=== PATIENT | female | born 1995 | race Caucasian/White ===

== ENCOUNTER 2022-12-08 04:07 | Day surgery (SDC) | payer OTHER, SELFPAY ==
[2022-12-08] VITALS (16 sets, daily range): BP systolic 111–150; BP diastolic 60–94; PULSE 70–92; RESP 12–16; TEMP 36.3–36.6; O2SAT 92–99; BMI 38.0; BMI 37.5
[2022-12-08 04:32] LABS: Appearance Urine Clear (Clear); Bilirubin Urine Negative (Negative); Blood Urine Negative (Negative); Color Urine Yellow (Yellow); Glucose Urine Negative (Negative); Ketones Urine Negative (Negative); Leukocyte Esterase Urine Trace (Negative); Nitrite Urine Negative (Negative); Protein Urine 1+ (Negative); Urobilinogen Urine 0.2 (0.2-1.0)
--- NOTE | 2022-12-08 04:38 | ED_ITS ---
HPI - General Adult General Chief complaint: Abdominal Pain Stated complaint: pain in kidney,chest and back Time Seen by Provider: 12/08/22 04:27 Source: patient Mode of arrival: ambulatory Limitations: no limitations History of Present Illness HPI narrative: 27-year-old female, anxious presents to the emergency department with a 2 day history of suprapubic area pain that radiates to the bilateral lower back area. No hematuria. Positive dysuria. No fevers no shaking chills, no weakness. Reports that she had vomiting x1 this morning. Normal stools. No blood. No gynecological symptoms, vaginal discharge or changes in partners. She is not on any form of contraception, last period was 3 weeks ago. She took some Tylenol last night with some temporary improvement in her symptoms, has not tried ibuprofen. Symptoms feel similar to when she had a bladder infection in September. She reports that she does not feel like her symptoms completely resolved after that bladder infection better definitely worse in the last 2 days that they had been in the last few months. She reports that she was feeling anxious about her symptoms and had an episode of chest pain about 2 hours ago that lasted a few minutes. It is currently resolved. She does not have any history of cardiac disease. Past medical history benign per her report. No major long-term health problems. Denies any long-term prescription medications, denies allergies. Socially she is a nonsmoker with no pertinent travel. ROS is notable for the generalized, chest and urinary symptoms as described above, otherwise denies times 12 systems. Related Data Home Medications Medication Instructions Recorded Confirmed No Known Home Medications 12/08/22 12/08/22 Allergies Allergy/AdvReac Type Severity Reaction Status Date / Time No Known Drug Allergies Allergy Verified 12/08/22 04:12 [facility] Social History Smoking Status: Never smoker Do you use any of these nicotine containing products: None Second hand tobacco smoke exposure: No How often do you have a drink containing alcohol: never How often do you have six or more drinks on one occasion: Never AUDIT-C Alcohol total score: 0 Non-prescribed substance use: denies use service: No Exam Const: Vital Signs, click to edit/add: Vital Signs - 24 hr 12/08/22 04:12 12/08/22 05:18 Temperature 97.6 F Pulse Rate [Pulse Oximeter] 89 90 Respiratory Rate 16 16 Blood Pressure [Le ft Upper Arm] 150/82 H 130/70 Pulse Oximetry 93 98 Oxygen Delivery Me thod Room Air Room Air Documenting provider has reviewed patient's vital signs: yes Common normals: alert Other: Moderate insight. Mildly anxious. Appears well-nourished, well-hydrated and nontoxic. HENMT: Common normals: normocephalic Head and scalp: normocephalic Face and sinus: normal facial exam Mouth: oral and palatal mucosa normal Throat: posterior oropharynx normal Eye: Common normals: conjunctivae normal General eye: normal appearance of both eyes Conjunctiva: conjunctiva(e) normal Neck & C-Spine: Common normals: full ROM and no lymphadenopathy Resp: Common normals: normal respiratory effort, no use of accessory muscles and clear to auscultation bilaterally Effort & inspection: able to speak in complete sentences Auscultation: clear to auscultation bilaterally Cardio: Common normals: regular rate, regular rhythm, S1 normal heart sound, S2 normal heart sound, no murmurs and peripheral pulses 2+ throughout Rate: regular rate Rhythm: regular rhythm Heart sounds: S1 normal and S2 normal Peripheral pulses: pulses 2+ throughout GI: Other: Abdomen is obese but soft. Bowel sounds are normoactive in all 4 quadrants. Nondistended. Mild suprapubic tenderness and right lower abdominal tenderness with no rebound tenderness, mass, guarding or hernias. : Common normals: no CVA tenderness Bladder/kidney exam: no CVA tenderness Back & Pelvis: Common normals: no CVA tenderness Other: Mild tenderness over the lower flank but not in the CVA. Extremity: Common normals: normal to inspection, normal capillary refill and no pedal edema Neuro: Sensorium/orientation: alert Speech: speech normal Gait (neuro): normal gait Motor exam: no tremor noted and no movement abnormalities noted Psych: Appearance: grossly normal Insight: fair Judgement: fair Other: Mildly anxious Skin: Common normals: no rashes or lesions noted General skin exam: no rashes or lesions noted Course Vital Signs Vital signs: Initial Vital Signs Temperature 97.6 F 12/08/22 04:12 Temperature Source Temporal Artery Scan 12/08/22 04:12 Pulse Rate 89 12/08/22 04:12 Pulse Rhythm Regular 12/08/22 04:12 Respiratory Rate 16 12/08/22 04:12 Blood Pressure 150/82 H 12/08/22 04:12 Blood Pressure Mean 104 12/08/22 04:12 Pulse Oximetry 93 12/08/22 04:12 Oxygen Delivery Method Room Air 12/08/22 04:12 Vital Signs Temperature 97.6 F 12/08/22 04:12 Pulse Rate 89 12/08/22 04:12 Respiratory Rate 16 12/08/22 04:12 Blood Pressure 150/82 H 12/08/22 04:12 Pulse Oximetry 93 12/08/22 04:12 Oxygen Delivery Method Room Air 12/08/22 04:12 Temperature 97.6 F 12/08/22 04:12 Pulse Rate 90 12/08/22 05:18 Respiratory Rate 16 12/08/22 05:18 Blood Pressure 130/70 12/08/22 05:18 Pulse Oximetry 98 12/08/22 05:18 Oxygen Delivery Method Room Air 12/08/22 05:18 Medical Decision Making MDM Narrative Medical decision making narrative: No severe abdominal tenderness, symptoms of sepsis. Exam is overall reassuring to problems limited within the suprapubic region. I have recommended urinalysis prior to any significant further other workup as well as an EKG. She was agreeable to this. Awaiting findings. Update: UA was nonsuspicious, elected to perform basic labs and CT scan of the abdomen and pelvis. Findings demonstrate leukocytosis, normal CRP. CT with early appendicitis. Patient feeling better on Toradol and Zofran. Spoke with Dr. Kramer from surgery, she is agreeable to inpatient placement and starting antibiotics. She will consult on patient this morning with a plan for surgery this afternoon. I will order Zosyn, make patient NPO and start some maintenance fluids. The hospitalist was called at 5:57 a.m.. Lab Data Lab results reviewed: Yes I reviewed the patient's lab results Labs: Lab Results 12/08/22 12/08/22 Range/Units 04:27 04:47 WBC 16.60 H (4.50-11.00) K/uL RBC 5.65 H (4.00-5.20) m/uL Hgb 14.2 (12.0-16.0) gm/dL Hct 43.5 (33.0-51.0) % MCV 77 L (80-100) fL MCH 25 L (26-34) pg MCHC 33 (32-36) gm/dL RDW Coeff of Juan 12.5 (11.5-15.5) % Plt Count 330 (140-440) K/uL Neut % (Auto) 75.4 H (42.0-72.0) % Lymph % (Auto) 14.5 L (20-44) % Person % (Auto) 8.7 (0.0-11.0) % Eos % (Auto) 1.0 (0.0-7.0) % Baso % (Auto) 0.1 (0.0-3.0) % Neut # (Auto) 12.50 H (1.7-7.0) K/uL Lymph # (Auto) 2.40 (0.90-2.90) K/uL Person # (Auto) 1.40 H (0.00-0.90) K/UL Eos # (Auto) 0.20 (0.00-0.50) K/uL Baso # (Auto) 0.00 (0.00-0.30) K/uL Sodium 139 (135-149) mmol/L Potassium 3.8 (3.6-5.1) mmol/L Chloride 105 (96-114) mmol/L Carbon Dioxide 25 (20-32) mmol/L BUN 12 (5-24) mg/dL Creatinine 0.8 (0.5-1.5) mg/dL Estimated Creat Clear 92.02 Estimated GFR 104 ml/min Glucose 103 (60-115) mg/dL Calcium 9.5 (8.4-10.6) mg/dL Total Bilirubin 0.6 (0.1-1.5) mg/dL AST 30 (12-35) U/L ALT 39 H (4-35) U/L Alkaline Phosphatase 86 (40-150) U/L C-Reactive Protein 1.0 (0.5-1.0) mg/dL Total Protein 7.7 (6.0-8.3) g/dL Albumin 4.4 (3.3-5.0) g/dL Lipase 44 (23-300) U/L HCG, Qual Negative (Negative) Urine Color Yellow (Yellow) Urine Appearance Clear (Clear) Urine pH 6.0 (5.0-8.5) Ur Specific Burton 1.010 (1.000-1.030) Urine Protein 1+ A (Negative) Urine Glucose (UA) Negative (Negative) Urine Ketones Negative (Negative) Urine Blood Negative (Negative) Urine Nitrite Negative (Negative) Urine Bilirubin Negative (Negative) Urine Urobilinogen 0.2 (0.2-1.0) Ur Leukocyte Esterase Trace A (Negative) Urine RBC 0-2 (0-2) Urine WBC 2-5 (0-5) Ur Squamous Epith Cells Few (None-Few) Urine Bacteria Few A (None) POC Troponin I 0.01 (0.01-0.04) ng/ml ECG Data Attestation: I personally reviewed and interpreted this ECG as follows: Prior ECG tracings: not available for review Interpretation: Normal sinus rhythm rate 96. No significant ST or T-wave abnormalities. Q- waves in lead to are a little enlarged but nonspecific. Normal axis Discharge Plan Discharge Clinical Impression: Acute appendicitis Patient Disposition: Admitted As Inpatient Condition: Improved
[2022-12-08 04:39] LABS: Bacteria Urine Few; RBC Urine 0-2 (0-2); Squamous Epithelial Cell Urine Few (None-Few)
[2022-12-08 04:41] LABS: HCG Qualitative* Negative (Negative)
--- NOTE | 2022-12-08 04:44 | CRLHL7_ITS ---
For Patients: As a result of the 21st Century Cures Act, medical imaging exams and procedure reports are released immediately into your electronic medical record. You may view this report before your referring provider. If you have questions, please contact your health care provider. INDICATION: Bilateral abdominal pain. COMPARISON: None TECHNIQUE: CT examination of the abdomen and pelvis was performed following the uneventful intravenous administration of 100 cc of Isovue 370. Thin section axial images were obtained from the lung bases through the pubic symphysis. Oral contrast was not administered. Please note that all CT scans at this facility use dose modulation, iterative reconstruction, and/or weight-based dosing when appropriate to reduce radiation dose to as low as reasonably achievable. FINDINGS: LUNG BASES: The lung bases as visualized appear normal.The heart size is normal at the lung bases. LIVER/BILIARY SYSTEM:The liver is normal in size and configuration. There is no focal mass and there is no intra- or extra hepatic biliary ductal dilatation.Hepatic steatosis. Normal appearing gallbladder. ADRENALS: Normal KIDNEYS, URETERS and BLADDER:The kidneys are normal in size. There is subtle decreased enhancement the posteromedial upper pole of the left kidney. This may be a transitory perfusion anomaly but pyelonephritis can create this appearance. Correlate with urinalysis. No obstructive uropathy. The bladder appears normal. SPLEEN:Normal appearance. PANCREAS: Appears normal. RETROPERITONEUM and MESENTERY: Mildly prominent lymph nodes in the right lower quadrant adjacent to the cecum GASTROINTESTINAL SYSTEM: The appendix is prominent measuring up to 9 millimeters. Greater than 6 millimeters is generally considered abnormal. The appendix appears slightly hyperemic but there are no surrounding inflammatory changes. The constellation of findings may represent very early acute appendicitis in the appropriate clinical setting. PELVIS: No mass, adenopathy or free fluid. OSSEOUS STRUCTURES and ABDOMINAL WALL: There is an age-appropriate appearance of the osseous structures.No significant abdominal wall defect. OTHER: No free fluid or free air. IMPRESSION: 1. Prominent appendix without surrounding inflammatory change but mild hyperemia. The findings may represent very early acute appendicitis in the appropriate clinical setting. Prominent lymph nodes in the right lower quadrant 2. Decreased enhancement of the posteromedial aspect of the left upper pole of the kidney. This could be due to a transitory perfusion anomaly though pyelonephritis can create this appearance. Correlate with urinalysis. Please note that all CT scans at this facility use dose modulation, iterative reconstruction, and/or weight-based dosing when appropriate to reduce radiation dose to as low as reasonably achievable. Dictated by Sukumar Hamilton MD @ 12/08/2022 5:35:11 AM (Electronically Signed)
[2022-12-08] MEDS: 0.9 % SODIUM CHLORIDE 1000 ml 1,000 ML IV (04:58)
[2022-12-08] MEDS: ONDANSETRON 2 MG/ML inj 4 MG IVP ×2 (04:58→14:04)
[2022-12-08] MEDS: KETOROLAC 15 MG/ML inj IVP (04:59)
[2022-12-08 05:07] LABS: Basophils Percent Auto 0.1 % (0.0-3.0); Hematocrit 43.5 % (33.0-51.0); Hemoglobin* 14.2 gm/dL (12.0-16.0); Immature Granulocytes Pct Auto 0.3 %; Lymphocytes Percent Auto 14.5 % (20-44); Mean Corpuscular HGB Conc 33 gm/dL (32-36); Mean Corpuscular Hemoglobin 25 pg (26-34); Mean Corpuscular Volume 77 fL (80-100); Monocytes Percent Auto 8.7 % (0.0-11.0); Neutrophils Percent Auto 75.4 % (42.0-72.0); Platelet Count* 330 K/uL (140-440); RDW Coefficient of Variation % 12.5 % (11.5-15.5); Red Blood Count 5.65 m/uL (4.00-5.20)
[2022-12-08 05:09] LABS: Slide Review Reflex No
[2022-12-08 05:14] LABS: Troponin, Point-of-Care* 0.01 ng/ml (0.01-0.04)
[2022-12-08 05:19] LABS: Chloride* 105 mmol/L (96-114)
[2022-12-08 05:20] LABS: Albumin* 4.4 g/dL (3.3-5.0); Potassium* 3.8 mmol/L (3.6-5.1); Sodium* 139 mmol/L (135-149)
[2022-12-08 05:22] LABS: Creatinine* 0.8 mg/dL (0.5-1.5); Est. Creatinine Clearance* 92.02; Estimated Glomerular Filt Rate 104 ml/min
[2022-12-08 05:23] LABS: Alanine Aminotransferase* 39 U/L (4-35); Alkaline Phosphatase* 86 U/L (40-150); Aspartate Amino Transferase* 30 U/L (12-35); Bilirubin Total* 0.6 mg/dL (0.1-1.5); Blood Urea Nitrogen* 12 mg/dL (5-24); Calcium* 9.5 mg/dL (8.4-10.6); Carbon Dioxide* 25 mmol/L (20-32); Glucose* 103 mg/dL (60-115); Lipase* 44 U/L (23-300); Total Protein* 7.7 g/dL (6.0-8.3)
[2022-12-08] MEDS: PIPERACILLIN/TAZOBACTAM 3.375 GM in 0.9 % SODIUM CHLORIDE Mini-bag 100 ML IVPB ×2 (06:09→11:55)
--- NOTE | 2022-12-08 06:25 | ED.NURSE ---
Patient updated with plan of care. She is agreeable. Last PO intake was 1700 last night per patient. Boyfriend remains at bedside.
[2022-12-08] MEDS: LACTATED RINGERS 1000 ML 1,000 ML 150 ML IV (06:42)
[2022-12-08 07:01] LABS: SARS PCR* Negative SARS-CoV-2 (Negative)
--- NOTE | 2022-12-08 07:46 | ED.NURSE ---
given report to Kerline REA who will resume care of this patient and plan to admit to room 258 via cart on M/S.
--- NOTE | 2022-12-08 08:49 | PM.GSHP ---
History of Present Illness History of Present Illness Date Seen: 12/08/22 Chief complaint: pain in kidney/chest and back Narrative: Chiquis Barakat is a 27 year old female who presented to the emergency department with a one-day history of lower pelvic pain. She states that the pain came out of the blue and has been persistent. Nothing seems to make the pain better and movement makes the pain worse. She does report pain similar to this back in September, but it was more or on her right side and did go away after a period of time. She does report some associated nausea and emesis, last emesis episode was 4:00 a.m.. Denies any diarrhea or constipation. Questions whether she has some pain with urination, although it is not consistent. She has never had abdominal surgery before. Review of Systems Status of ROS: Reports: 10 or more systems reviewed and unremarkable except as noted in History and below [facility] Social History Smoking Status: Never smoker Do you use any of these nicotine containing products: None Second hand tobacco smoke exposure: No How often do you have a drink containing alcohol: never How often do you have six or more drinks on one occasion: Never AUDIT-C Alcohol total score: 0 Non-prescribed substance use: denies use service: No Meds Home Medications and Allergies Home Medications Medication Instructions Recorded Confirmed Type No Known Home Medications 12/08/22 12/08/22 History Allergies Allergy/AdvReac Type Severity Reaction Status Date / Time No Known Drug Allergies Allergy Verified 12/08/22 04:12 Exam Narrative: Exam Narrative: General: Alert and oriented, no acute distress Respiratory: Equal breath rise bilaterally, maintained on room air CV: Regular rhythm rate, well perfused Abdomen: Soft, tender to deep palpation above the pubic bone but no guarding or rebound. No right lower quadrant tenderness with palpation. Const: Vital Signs, click to edit/add: Vital Signs - 24 hr 12/08/22 04:12 12/08/22 05:18 12/08/22 06:24 Temperature 97.6 F Pulse Rate [Pulse Oximeter] 89 90 84 Respiratory Rate 16 16 16 Blood Pressure [Le ft Upper Arm] 150/82 H 130/70 131/85 Blood Pressure [Ri ght Arm] Pulse Oximetry 93 98 98 Oxygen Delivery Me thod Room Air Room Air Room Air 03/28/23 08:16 Temperature 97.7 F Pulse Rate [Pulse Oximeter] 78 Respiratory Rate 16 Blood Pressure [Le ft Upper Arm] Blood Pressure [Ri ght Arm] 130/76 Pulse Oximetry 98 Oxygen Delivery Me thod Room Air Results Results Labs: WBC: [address] scan report/results: report reviewed and image reviewed Assessment and Plan Assessment and plan (1) Acute appendicitis: Status: Acute Plan The patient presented with a history, exam and imaging findings suspicious for early acute appendicitis. I discussed the treatment options with the patient including non-surgical and surgical options. I recommended laparoscopic appendectomy. The risks of surgery were reviewed with the patient including the risks of bleeding, post-operative wound or intra-abdominal infection, injury to abdominal structures and possible conversion to an open operation. We also discussed anesthetic complications including OR, stroke, respiratory failure and blood clots. We also reviewed the possibility that the appendix is normal. In this situation we still remove the appendix. The patient voiced an understanding of our conversation, had the opportunity to ask questions, agreed to accept the risks of surgery and asked that we proceed with surgery. -NPO, IV fluid -Zosyn preoperative antibiotic -OR for laparoscopic appendectomy
[2022-12-08] MEDS: BUPIVACAINE 0.5% 30 ML 10 ML INJECTION (11:58)
--- NOTE | 2022-12-08 12:00 | W.ANESCHARGE ---
Anesthesia Charges Start Date/Time Anesthesia Start Date: 12/08/22 Anesthesia Start Time: 11:48 Stop Date/Time Anesthesia Stop Date: 12/08/22 Anesthesia Stop Time: 12:48
--- NOTE | 2022-12-08 12:33 | P.GSOP_ITS ---
Operative Note Date of procedure: 12/08/22 Pre-op diagnosis: Acute appendicitis Post-op diagnosis: Acute appendicitis, non perforated Type of Procedure: Laparoscopic appendectomy Indications: Patient is a 27-year-old female who presented to the emergency department with workup consistent for early, acute appendicitis. Risks and benefits of operative intervention were discussed at length with the patient. Risks included but was not limited to: Bleeding, infection, risk of damage to surrounding structures, possible need for additional procedures, possible need to convert to an open operation and postoperative complications such as pneumonia, pulmonary emboli or MO. All questions and concerns were addressed with the patient agreeing to proceed. Procedure Description: After discussing the risks and benefits of the procedure, the patient signed informed consent.? The operative site was marked and the patient was brought to the operating room and placed on the operating table in supine position.? Care was taken to pad the patient's pressure points.?? The patient was then intubated by anesthesia.?? The operative site was then prepped and draped in the usual sterile fashion.? A time-out was then performed. Entrance to the abdomen was obtained via a 5 mm optical trocar in the left upper quadrant. The abdomen was insufflated and briefly surveyed for any signs of injury. There were none. A 12 mm port was placed lateral to the umbilicus as well as a 5 mm port in the left lower quadrant under direct vision. The patient was then placed in Trendelenburg position with the right side up. The small bowel was gently moved out of the way and the appendix was in view. A small amount of dissection was necessary to free the appendix from the surrounding pelvic attachments. This was grasped and pulled into view. A mesenteric window was created between the base of the appendix and the mesoappendix. A 45 mm Endo-JAMES vascular load stapler was then used to transect the appendix at its base, which did not appear inflamed. A 45 mm vascular load stapler was then used to take the mesoappendix. The staple lines were inspected for bleeding. There was none. The appendix was then removed from the abdomen using an Endo- Catch bag. The specimen was sent to pathology. The 12 mm port site fascia was closed with 0 Vicryl via the Amish-Dany. The skin was then closed with absorbable subcuticular suture. Sterile dressings were then applied. Instrument sponge and needle counts were correct at the end of the case. The patient was then woken and transported to the PACU in stable condition. ? Findings: Dilated and firm appendix. No evidence of perforation. Findings consistent with early acute appendicitis. Anesthesia: GETA Surgeon: Leslie Kramer MD Estimated blood loss (mL): 2 Specimen: Appendix Condition: stable Disposition: same day
--- NOTE | 2022-12-08 12:49 | W.ANESCHARGE ---
Anesthesia Charges Start Date/Time Anesthesia Start Date: 12/08/22 Anesthesia Start Time: 11:48 Stop Date/Time Anesthesia Stop Date: 12/08/22 Anesthesia Stop Time: 12:48
[2022-12-08] MEDS: LACTATED RINGERS 1000 ML 1,000 ML 100 ML IV (13:15)
[2022-12-08] MEDS: OXYCODONE 5 MG TABLET PO (13:27)
--- NOTE | 2022-12-08 13:58 | PC.NURSE ---
Pt is alert and oriented. NPO prior to surgery. Rated pain 3/10 and stated that was tolerable. Off to surgery around 1100.
== END 2022-12-08 15:15 | disposition home or self-care (01) ==
LOC: ED 07:12 → SS 10:23 → MEDSURG 12:33
PROVIDERS: Emergency Provider Family Medicine; Visit Provider Surgery
PROC: 0DTJ4ZZ Resection of Appendix, Percutaneous Endoscopic Approach (ICD-10-PCS; CPT 44970; principal; 2022-12-08 13:00)
DX: K35.80 Unspecified acute appendicitis (principal)
CPT/HCPCS: 44970; 00840; 36415; 74177; 80053; 81001; 83690; 84484; 84703; 85025; 86140; 87086; 87635; 88304; 93005; 99284; 99285; A9270; J0330; J1100; J1170; J1885; J2250; J2405; J2543; J2704; J3010; J3490; J7030; J7120; Q9967

== ENCOUNTER 2023-03-12 01:10 | Emergency (ER) | payer MEDICAID, SELFPAY ==
[2023-03-12 01:16] VITALS: BP 114/78; PULSE 91; RESP 18; TEMP 35.9; O2SAT 99
--- NOTE | 2023-03-12 01:39 | ED_ITS ---
HPI - General Adult General Chief complaint: Back Injury/Pain Stated complaint: Right side back pain Time Seen by Provider: 03/12/23 01:25 Source: patient and family Mode of arrival: ambulatory History of Present Illness HPI narrative: 27-year-old female presents to the emergency department with right-sided back pain. She is quite vague in her descriptions and is difficult to pin down a diagnosis based on her description. There is no trauma or injury. No hematuria. No prior history of kidney stones. She has also had nausea and vomiting for the past 3 days since she underwent wisdom tooth extraction. She tried taking some oxycodone for her pain which did not improve her symptoms. She was given the oxycodone from the wisdom tooth extraction. There is no radiculopathy, no numbness or tingling. Her last menstrual period was about 3 and half weeks ago. Denies any gynecological symptoms. Reports that she has been throwing up any attempts at pain medication. She is not able to describe it the pain is constant or intermittent, colicky or crampy. She denies any association with bowel movements or food. She points to the right flank area but on further questioning she is also pointing to the right upper quadrant, rig ht lower quadrant, she states that her pain feels like when she had appendicitis. She underwent an uncomplicated appendectomy 3 months ago. There was certainly no loss of bowel or bladder control, no weakness. Past medical history she states is benign, denies any long-term health problems. Denies any long-term medications or allergies. ROS is notable for the right back/flank area pain and vomiting as above, otherwise denies times 12 systems. Related Data Previous Rx's Medication Instructions Recorded oxycodone 5 mg tablet 5 mg PO Q6H PRN pain #15 tabs 12/08/22 sennosides 8.6 mg capsule (senna) 8.6 mg PO DAILY PRN constipation 12/08/22 #90 caps Allergies Allergy/AdvReac Type Severity Reaction Status Date / Time Latex, Natural Rubber Allergy Verified 12/08/22 09:12 [facility] Medical History History of urinary tract infection ?Z87.440 - Personal history of urinary (tract) infections (ICD-10) History of tobacco use ?Z87.891 - Personal history of nicotine dependence (ICD-10) History of self injurious behavior Surgical History History of repair of anterior cruciate ligament ?Z98.890 - Other specified postprocedural states (ICD-10) H/O anterior cruciate ligament surgery ?Z98.890 - Other specified postprocedural states (ICD-10) Social History Highest level of school completed/degree received: high school graduate Smoking Status: Never smoker Do you use any of these nicotine containing products: None Second hand tobacco smoke exposure: No How often do you have a drink containing alcohol: monthly or less How often do you have six or more drinks on one occasion: Less than monthly AUDIT-C Alcohol total score: 2 Non-prescribed substance use: denies use Caffeine: Yes (2-3 cups a day) service: No Exam Const: Vital Signs, click to edit/add: Vital Signs - 24 hr 03/12/23 01:16 Temperature 96.6 F L Pulse Rate [Left P ulse Oximeter] 91 Respiratory Rate 18 Blood Pressure [Ri ght Upper Arm] 114/78 Pulse Oximetry 99 Oxygen Delivery Me thod Room Air Documenting provider has reviewed patient's vital signs: yes Common normals: no apparent distress General appearance: cooperative Other: Cooperative with exam, not a very descriptive historian. HENMT: Common normals: normocephalic Head and scalp: normocephalic Face and sinus: normal facial exam Mouth: oral and palatal mucosa normal Throat: posterior oropharynx normal Eye: Common normals: conjunctivae normal General eye: normal appearance of both eyes Conjunctiva: conjunctiva(e) normal Neck & C-Spine: Common normals: full ROM and no lymphadenopathy Resp: Common normals: normal respiratory effort, no use of accessory muscles and clear to auscultation bilaterally Effort & inspection: able to speak in complete sentences Auscultation: clear to auscultation bilaterally Cardio: Common normals: regular rate, regular rhythm, S1 normal heart sound, S2 normal heart sound and no murmurs Rate: regular rate Rhythm: regular rhythm Heart sounds: S1 normal and S2 normal GI: Common normals: Normal to inspection, nondistended, normoactive bowel sounds present Other: Obese but soft. She reports pain everywhere I palpate but it appears mild and is not reproducible. There was certainly no masses, rebound tenderness or guarding. Back & Pelvis: Other: Mild tenderness at the L2 area on palpation also the right paraspinal muscles. Also somewhat the right CVA area but again the exam was really not very reproducible. Straight leg lift is certainly negative bilaterally. Strength in both legs is normal. Extremity: Common normals: normal to inspection, full ROM and no pedal edema Neuro: Speech: speech normal Gait (neuro): normal gait Motor exam: strength 5/5 throughout and no movement abnormalities noted Psych: Appearance: grossly normal Insight: fair Judgement: fair Other: A bit distant but cooperative. Skin: Common normals: no rashes or lesions noted General skin exam: no rashes or lesions noted Course Course Hospital Course: Wide differential diagnosis including pancreatitis, gallstones, cholecystitis, pancreatitis, musculoskeletal etiology, kidney stone, among others. Recommended urinalysis to look for blood, is not on menstrual cycle. Highest suspicion is for kidney stone based on the vomiting and back pain. Will start an IV, bolus a L of normal saline because of the recent vomiting, Zofran for nausea and Toradol. Basic labs to investigate for other sources. Anticipate CT scan if urinalysis shows any blood. Vital Signs Vital signs: Initial Vital Signs Temperature 96.6 F L 03/12/23 01:16 Temperature Source Temporal Artery Scan 03/12/23 01:16 Pulse Rate 91 03/12/23 01:16 Pulse Rhythm Regular 03/12/23 01:16 Respiratory Rate 18 03/12/23 01:16 Blood Pressure 114/78 03/12/23 01:16 Blood Pressure Mean 90 03/12/23 01:16 Blood Pressure Position Sitting 03/12/23 01:16 Pulse Oximetry 99 03/12/23 01:16 Oxygen Delivery Method Room Air 03/12/23 01:16 Vital Signs Temperature 96.6 F L 03/12/23 01:16 Pulse Rate 91 03/12/23 01:16 Respiratory Rate 18 03/12/23 01:16 Blood Pressure 114/78 03/12/23 01:16 Pulse Oximetry 99 03/12/23 01:16 Oxygen Delivery Method Room Air 03/12/23 01:16 Temperature 96.6 F L 03/12/23 01:16 Pulse Rate 91 03/12/23 01:16 Respiratory Rate 18 03/12/23 01:16 Blood Pressure 114/78 03/12/23 01:16 Pulse Oximetry 99 03/12/23 01:16 Oxygen Delivery Method Room Air 03/12/23 01:16 Medical Decision Making MDM Narrative Medical decision making narrative: Wide differential diagnosis due to unclear story. Patient reports marked improvement with the Toradol, Zofran and IV fluids. Findings from labs and CT scan reviewed with her. She denies regular use of marijuana that could be contributing to the vomiting. I do still have some clinical suspicion that this could be the case as well. Nonetheless, no severe pathology is appreciated. She will be given Zofran, counseled on Tylenol and ibuprofen. Single dose of MiraLax to help with bowels, counseled on further doses. Alarm symptoms reviewed that would warrant repeat ED presentation. She verbalizes understanding and agreement Lab Data Lab results reviewed: Yes I reviewed the patient's lab results Lab results narrative: Mild leukocytosis but overall reassuring. Labs: Lab Results 03/12/23 03/12/23 Range/Units 01:38 01:44 WBC 13.16 H (4.50-11.00) K/uL RBC 5.59 H (4.00-5.20) m/uL Hgb 13.9 (12.0-16.0) gm/dL Hct 44.0 (33.0-51.0) % MCV 79 L (80-100) fL MCH 25 L (26-34) pg MCHC 32 (32-36) gm/dL RDW Coeff of Juan 14.0 (11.5-15.5) % Plt Count 349 (140-440) K/uL Neut % (Auto) 59.9 (42.0-72.0) % Lymph % (Auto) 27.1 (20-44) % [place] % (Auto) 10.3 (0.0-11.0) % Eos % (Auto) 2.0 (0.0-7.0) % Baso % (Auto) 0.5 (0.0-3.0) % Neut # (Auto) 7.90 H (1.7-7.0) K/uL Lymph # (Auto) 3.60 H (0.90-2.90) K/uL [place] # (Auto) 1.40 H (0.00-0.90) K/UL Eos # (Auto) 0.30 (0.00-0.50) K/uL Baso # (Auto) 0.10 (0.00-0.30) K/uL Sodium 141 (135-149) mmol/L Potassium 4.0 (3.6-5.1) mmol/L Chloride 102 (96-114) mmol/L Carbon Dioxide 32 (20-32) mmol/L BUN 9 (5-24) mg/dL Creatinine 1.0 (0.5-1.5) mg/dL Estimated GFR 80 ml/min Glucose 92 (60-115) mg/dL Calcium 9.2 (8.4-10.6) mg/dL Total Bilirubin 0.7 (0.1-1.5) mg/dL AST 20 (12-35) U/L ALT 26 (4-35) U/L Alkaline Phosphatase 75 (40-150) U/L C-Reactive Protein 1.6 H (0.5-1.0) mg/dL Total Protein 8.2 (6.0-8.3) g/dL Albumin 4.5 (3.3-5.0) g/dL Lipase 30 (23-300) U/L Urine Color Yellow (Yellow) Urine Appearance Clear (Clear) Urine pH 6.0 (5.0-8.5) Ur Specific [place] 1.015 (1.000-1.030) Urine Protein Negative (Negative) Urine Glucose (UA) Negative (Negative) Urine Ketones Negative (Negative) Urine Blood Negative (Negative) Urine Nitrite Negative (Negative) Urine Bilirubin Negative (Negative) Urine Urobilinogen 0.2 (0.2-1.0) Ur Leukocyte Esterase Trace A (Negative) Urine RBC 0-2 (0-2) Urine WBC 0-2 (0-5) Ur Squamous Epith Cells Few (None-Few) Urine Bacteria None (None) Urine HCG, Qual Negative (Negative) Imaging Data CT scan - abdomen: Attestation: I have reviewed the pertinent imaging results. My impression: Mild constipation, otherwise normal. Radiologist's impression: IMPRESSION: No acute intra-abdominal process identified. Punctate stone in the lower pole of the right kidney. Status post appendectomy. Discharge Plan Discharge Clinical Impression: Low back strain, Post-operative nausea and vomiting Patient Disposition: Home w/ Parent or Adult Condition: Improved Instructions: Acute Nausea and Vomiting (ED) Additional Instructions: I think that there may be 2 separate processes going on here today. There are no signs of a kidney stone, infection or pancreatitis or problems with the gallb ladder. This is all reassuring. I suspect that your nausea and vomiting is caused by the anesthesia that your given. Some people do not tolerate this well. Try to avoid using the oxycodone as I do suspect that this will make her vomiting worse. You also do appear mildly constipated on the CT scan. Treating this will only help the nausea and vomiting. You were given a single dose of MiraLax here in the emergency department. I would recommend that you continue taking 17 g of this which is 1 standard dose every 8 hours until things are moving well through your bowels. You will likely only need another 1 or 2 doses of this. I will give you a prescription for some Zofran, a common anti nausea medicine to use for the next couple of days as needed. You may take 1 tablet up to every 6 hours. It is okay to use Tylenol and ibuprofen for pain. The Zofran will help you hold this down. The back pain is either related to a pulled muscle or a complication of the constipation. I do not detect any severe problems within the back, herniated disc or nerve impingement. The Tylenol and ibuprofen should help with this. If your back pain is not improving in a few days, I would make a follow-up appointment with my primary care provider to discuss a physical therapy referral. Avoid alcohol until your symptoms improve. Since her symptoms are not severe, you have no restrictions of duty. Come to the emergency department if you have persistent vomiting of blood, bloody stools, severe abdominal pain especially with a fever over 100.4, back pain with loss of bowel or bladder function or severe weakness in the legs. Remember the proper dosing of Tylenol is 1000 mg every 6 hours and or combined with ibuprofen 600 mg every 6 hours. Be sure to max these out prior to considering use of your oxycodone. Activity Level: Activity as Tolerated Discharge Diet: Regular Prescriptions: No Action oxycodone 5 mg tablet 5 mg PO Q6H PRN (Reason: pain) Qty: 15 0RF senna 8.6 mg capsule 8.6 mg PO DAILY PRN (Reason: constipation) Qty: 90 0RF Follow Up/Referrals: Provider,Not a Local [Primary Care Provider] - Stand Alone Forms: [facility] Info Instructions
[2023-03-12] MEDS: 0.9 % SODIUM CHLORIDE 1000 ml 1,000 ML IV (01:48)
[2023-03-12 01:49] LABS: Basophils Percent Auto 0.5 % (0.0-3.0); Hemoglobin* 13.9 gm/dL (12.0-16.0); Immature Granulocytes Pct Auto 0.2 %; Lymphocytes Percent Auto 27.1 % (20-44); Mean Corpuscular HGB Conc 32 gm/dL (32-36); Mean Corpuscular Hemoglobin 25 pg (26-34); Mean Corpuscular Volume 79 fL (80-100); Monocytes Percent Auto 10.3 % (0.0-11.0); Neutrophils Percent Auto 59.9 % (42.0-72.0); Platelet Count* 349 K/uL (140-440); Red Blood Count 5.59 m/uL (4.00-5.20); White Blood Count* 13.16 K/uL (4.50-11.00)
[2023-03-12] MEDS: ONDANSETRON 2 MG/ML inj 4 MG IVP (01:49)
[2023-03-12] MEDS: KETOROLAC 15 MG/ML inj IVP (01:49)
[2023-03-12 01:50] LABS: Appearance Urine Clear (Clear); Bilirubin Urine Negative (Negative); Blood Urine Negative (Negative); Color Urine Yellow (Yellow); Glucose Urine Negative (Negative); Ketones Urine Negative (Negative); Leukocyte Esterase Urine Trace (Negative); Nitrite Urine Negative (Negative); Protein Urine Negative (Negative); Specific Gravity Urine 1.015 (1.000-1.030); Urobilinogen Urine 0.2 (0.2-1.0)
[2023-03-12 01:52] LABS: Slide Review Reflex No
[2023-03-12 01:53] LABS: Ur HCG Qualitative* Negative (Negative)
[2023-03-12 01:57] LABS: RBC Urine 0-2 (0-2); Squamous Epithelial Cell Urine Few (None-Few); WBC Urine 0-2 (0-5)
[2023-03-12 02:02] LABS: Albumin* 4.5 g/dL (3.3-5.0); Chloride* 102 mmol/L (96-114); Sodium* 141 mmol/L (135-149)
[2023-03-12 02:05] LABS: Carbon Dioxide* 32 mmol/L (20-32); Estimated Glomerular Filt Rate 80 ml/min
[2023-03-12 02:06] LABS: Alanine Aminotransferase* 26 U/L (4-35); Alkaline Phosphatase* 75 U/L (40-150); Aspartate Amino Transferase* 20 U/L (12-35); Bilirubin Total* 0.7 mg/dL (0.1-1.5); Blood Urea Nitrogen* 9 mg/dL (5-24); Calcium* 9.2 mg/dL (8.4-10.6); Glucose* 92 mg/dL (60-115); Lipase* 30 U/L (23-300); Total Protein* 8.2 g/dL (6.0-8.3)
[2023-03-12 02:09] LABS: C Reactive Protein* 1.6 mg/dL (0.5-1.0)
--- NOTE | 2023-03-12 02:25 | CRLHL7_ITS ---
For Patients: As a result of the Century Cures Act, medical imaging exams and procedure reports are released immediately into your electronic medical record. You may view this report before your referring provider. If you have questions, please contact your health care provider. INDICATION: Right flank pain for 2 days TECHNIQUE: CT abdomen and pelvis without contrast. COMPARISON: December 08, 2022 FINDINGS: Lower chest: Unremarkable. Liver: Unremarkable. Spleen: Unremarkable. Pancreas: Unremarkable. Gallbladder and bile ducts: Unremarkable. Adrenal glands: Unremarkable. Kidneys: No hydronephrosis or hydroureter. Punctate stone in the lower pole the right kidney. No perinephric fat stranding. GI tract: Unremarkable. Status post appendectomy. Vascular structures: Unremarkable. Lymph nodes: Unremarkable. Miscellaneous: Unremarkable. No free air. Pelvic Organs: Trace free fluid in the pelvis, likely physiologic. Bones: Unremarkable for age. IMPRESSION: No acute intra-abdominal process identified. Punctate stone in the lower pole of the right kidney. Status post appendectomy. Please note that all CT scans at this facility use dose modulation, iterative reconstruction, and/or weight-based dosing when appropriate to reduce radiation dose to as low as reasonably achievable. Dictated by Karon Mckeon MD @ 03/12/2023 3:25:59 AM (Electronically Signed)
[2023-03-12 03:45] VITALS: BP 112/85; PULSE 80; RESP 16; O2SAT 98
[2023-03-12] MEDS: polyethylene glycoL 3350 17 GM PACK PO (03:56)
== END 2023-03-12 04:04 | disposition home or self-care (01) ==
PROVIDERS: Emergency Provider Family Medicine
DX: S39.012A Strain of muscle, fascia and tendon of lower back, initial encounter (principal); R11.2 Nausea with vomiting, unspecified
CPT/HCPCS: 36415; 74176; 80053; 81003; 81015; 81025; 83690; 85025; 86140; 96361; 96374; 96375; 99284; 99285; A9270; J1885; J2405; J7030